=== PATIENT | male | born 1985 | race Caucasian/White ===

== ENCOUNTER → 2016-04-07 | Outpatient (REF) ==
[~2016-04-07] MED LIST: AMOXICILLIN 50500 MG PO; DESYREL 100MG100 MG PO; FLEXERIL 1010 MG/TAB PO; FLEXERIL5 MG; MEDROL 4MG DOSPA4 MG PO; MOBIC 7.5MG7.5 MG PO; NAPROSYN500 MG PO; NORCO 325 MG-51 TAB PO; NORCO 325 MG-7.1 TAB PO; PEN-VEE K500 MG PO; PERCOCET 325 MG1 TA2 PO; PREDNISONE20 MG PO; ROBAXIN 50500 MG/TAB PO; TYLENOL 325MG325 MG PO; ZOFRAN ODT4 MG PO
== END ==
LOC: WSOH 13:25 → WSPT 14:00
DX: Z02.1 Encounter for pre-employment examination (principal)

== ENCOUNTER 2016-05-04 20:47 | Emergency (ER) | payer SELFPAY ==
[~2016-05-04] VITALS: Ht 167.6 cm; Wt 93.2 kg
[~2016-05-04 20:47] MED LIST changes: -AMOXICILLIN 50500 MG PO; -DESYREL 100MG100 MG PO; -FLEXERIL5 MG; -MOBIC 7.5MG7.5 MG PO; -PERCOCET 325 MG1 TA2 PO; -PREDNISONE20 MG PO; -ROBAXIN 50500 MG/TAB PO
[2016-05-04 20:51] VITALS: BP 132/97; TEMP 97.1
[2016-05-04] MEDS ORDERED: DESYREL 100MG100 MG PO (20:53)
[2016-05-04] MEDS ORDERED: NORCO 325 MG-51 TAB PO (21:45)
[2016-05-04] MEDS ORDERED: AMOXICILLIN 50500 MG PO (21:45)
[2016-05-04 21:51] VITALS: PULSE 74
[2016-08-19] MEDS ORDERED: MOBIC 7.5MG7.5 MG PO (09:31)
== END 2016-05-04 21:58 | disposition home or self-care (01) ==
LOC: COL.ER 20:47
DX: K04.7 Periapical abscess without sinus (principal); K08.89 Other specified disorders of teeth and supporting structures; K03.81 Cracked tooth; F17.210 Nicotine dependence, cigarettes, uncomplicated
CPT/HCPCS: J1885

== ENCOUNTER 2016-07-31 17:55 | Emergency (ER) | payer BC ==
[~2016-07-31] VITALS: Ht 167.6 cm; Wt 93.2 kg
[~2016-07-31 17:55] MED LIST changes: +AMOXICILLIN 50500 MG PO; +DESYREL 100MG100 MG PO
[2016-07-31 17:57] VITALS: BP 125/69; TEMP 98
[2016-07-31 18:50] VITALS: PULSE 106
[2016-08-01] MEDS ORDERED: FLEXERIL5 MG (23:01)
[2016-08-19] MEDS ORDERED: MOBIC 7.5MG7.5 MG PO (09:31)
== END 2016-07-31 18:50 | disposition home or self-care (01) ==
LOC: COL.ER 17:55
DX: M54.5 Low back pain (principal); F17.210 Nicotine dependence, cigarettes, uncomplicated; Z87.39 Personal history of other diseases of the musculoskeletal system and connective tissue
CPT/HCPCS: J1885; J2360

== ENCOUNTER 2016-08-01 22:49 | Emergency (ER) | payer BC ==
[~2016-08-01] VITALS: Ht 167.6 cm; Wt 93.2 kg
[2016-08-01 23:01] VITALS: BP 125/83; TEMP 98.6
[2016-08-01] MEDS ORDERED: FLEXERIL5 MG (23:01)
[2016-08-01 23:56] LABS: BASO # 0.1 (0.0-0.2); BASO % 0.7 % (0.0-2.0); EOS # 0.6 (0.0-0.7); EOS % 6.3 % (0-4.0); GRAN # 4.4 (1.4-6.5); GRAN % 50.9 % (42.2-75.2); HEMATOCRIT 41.8 % (42.0-52.0); HEMOGLOBIN 14.9 g/dl (13.5-18.0); LYMPH % 34.3 % (20.0-51.0); MEAN CELL VOLUME 86 fl (80.0-100.0); MEAN CORPUSCULAR HEMOGLOBIN 31 pg (27.0-31.0); MEAN CORPUSCULAR HGB CONC 36 g/dl (33.0-37.0); MEAN PLATELET VOLUME 8.4 fl (7.4-10.4); MONO # 0.7 (0.1-0.6); MONO % 7.6 % (1.7-9.3); PLATELET COUNT 264 K/mm3 (130-400); RED BLOOD COUNT 4.88 M/mm3 (4.20-5.60); REDCELL DISTRIBUTION WIDTH-CV 13.1 % (11.5-14.5); WHITE BLOOD COUNT 8.7 K/mm3 (4.8-10.8)
[2016-08-02 00:13] LABS: C-REACTIVE PROTEIN 0.6 mg/dL (0.0-0.9); CALCIUM 8.8 mg/dL (8.4-10.2); CREATININE, serum 0.86 mg/dL (0.66-1.25); POTASSIUM 3.8 mmol/L (3.4-5.0)
[2016-08-02 00:20] LABS: PH 5 (5-8); SQUAMOUS EPITHELIAL 0-2 /hpf; URINE APPEARANCE Clear; URINE BACTERIA Rare /hpf; URINE BILIRUBIN Negative (NEGATIVE); URINE BLOOD Negative (NEGATIVE); URINE COLOR Yellow; URINE GLUCOSE Negative (NEGATIVE); URINE KETONE Negative (NEGATIVE); URINE RBC None Seen /hpf; URINE UROBILINOGEN Negative (NEGATIVE); URINE WBC 0-2 /hpf
[2016-08-02 00:32] LABS: ERYTHROCYTE SEDIMENTATION RATE 1 mm/hr (0-15)
[2016-08-02] MEDS ORDERED: PREDNISONE20 MG PO (01:42)
[2016-08-02 01:53] VITALS: PULSE 82
[2016-08-19] MEDS ORDERED: MOBIC 7.5MG7.5 MG PO (09:31)
== END 2016-08-02 01:54 | disposition home or self-care (01) ==
LOC: COL.ER 22:49
PROVIDERS: Emergency Medicine
DX: M54.5 Low back pain (principal); R20.2 Paresthesia of skin; F17.210 Nicotine dependence, cigarettes, uncomplicated; W19.XXXA Unspecified fall, initial encounter; Y92.511 Restaurant or cafe as the place of occurrence of the external cause; Y99.0 Civilian activity done for income or pay
CPT/HCPCS: J1885; J7512

== ENCOUNTER → 2016-08-02 | Outpatient (CLI) | payer BC ==
[~2016-08-02] MED LIST changes: +FLEXERIL5 MG; +MOBIC 7.5MG7.5 MG PO; +PERCOCET 325 MG1 TA2 PO; +PREDNISONE20 MG PO; +ROBAXIN 50500 MG/TAB PO
== END ==
LOC: COL.RAD 13:19
DX: R20.0 Anesthesia of skin (principal)

== ENCOUNTER → 2016-08-16 | Outpatient (CLI) | payer BC ==
[2016-08-18 18:55] LABS: .ANTICARDIOLIPIN IGG <9.4 GPL (()); .ANTICARDIOLIPIN IGM <9.4 MPL (())
== END ==
LOC: COL.LAB 12:22
PROVIDERS: Psychiatry & Neurology Neurology
DX: I77.6 Arteritis, unspecified (principal)

== ENCOUNTER 2016-08-23 08:52 | Outpatient (CLI) | payer BC ==
[2016-08-23] VITALS (7 sets, daily range): BP systolic 127–140; BP diastolic 79–93; PULSE 54–83
[~2016-08-23] VITALS: Ht 167.6 cm; Wt 90.4 kg
[~2016-08-23 08:52] MED LIST changes: -PERCOCET 325 MG1 TA2 PO; -ROBAXIN 50500 MG/TAB PO
[2016-08-23 15:11] LABS: CEREBROSPINAL TUBE #4; CSF APPEARANCE CLEAR; CSF COLOR COLORLESS
[2016-08-23 15:12] LABS: CSF POLYMORPHONUCLEAR 0 % (0-6)
[2016-08-25 12:58] LABS: CSF IGG/ALBUMIN 0.29 (<=0.21); CSF,IGG 16.5 mg/dL (<=8.1)
[2016-08-25 14:17] LABS: CSF SYNTHESIS RATE 51.87 mg/24 h (<=12); CSF-IGG INDEX 1.21 (<=0.85); IGG/ALBUMIN SERUM 0.24 (<=0.40)
== END 2016-08-23 11:57 | disposition home or self-care (01) ==
LOC: COL.RAD 08:52
PROVIDERS: Psychiatry & Neurology Neurology
DX: G95.89 Other specified diseases of spinal cord (principal)

== ENCOUNTER 2016-08-31 15:17 | Emergency (ER) | payer BC ==
[~2016-08-31] VITALS: Ht 167.6 cm; Wt 90.9 kg
[2016-08-31 15:19] VITALS: BP 160/91; PULSE 98; TEMP 98.1
[2016-08-31] MEDS ORDERED: ROBAXIN 50500 MG/TAB PO (15:24)
[2016-08-31] MEDS ORDERED: PERCOCET 325 MG1 TA2 PO (16:09)
== END 2016-08-31 16:48 | disposition home or self-care (01) ==
LOC: COL.ER 15:17
DX: S29.012A Strain of muscle and tendon of back wall of thorax, initial encounter (principal); W18.49XA Other slipping, tripping and stumbling without falling, initial encounter; G35 Multiple sclerosis